=== PATIENT | female | born 1960 | race Caucasian/White ===

== ENCOUNTER → 2016-11-30 | Outpatient (CLI) | payer OTHER ==
[~2016-11-30] MED LIST: APIX1TAB3 PO; FLEC50TA20 PO; LISI-461 PO; METO25TA56 PO; OXYC-57 PO; TAMO20TA47 PO
== END | disposition home or self-care (01) ==
LOC: C.PATHSPEC 17:28
PROVIDERS: ATTEND Obstetrics & Gynecology
DX: N85.8 Other specified noninflammatory disorders of uterus (principal)

== ENCOUNTER 2017-01-25 07:32 | Observation (INO) | payer OTHER ==
[2017-01-06 09:55] VITALS: BMI 35.0
--- NOTE | 2017-01-06 10:36 | PAT Medication Instructions ---
Service Date Jan 06, 2017. Current Home Medication List Apixaban (Eliquis), 5 MG PO BID Flecainide (Tambocor), 50 MG PO BID Lisinopril (Zestril), 10 MG PO HS Metoprolol Tartrate (Lopressor) (Lopressor), 25 MG PO BID Tamoxifen (Nolvadex), 20 MG PO QAM Medication Instructions For Your Scheduled Surgery Apixaban (Eliquis), 5 MG PO BID (hold 10 days prior to surgery per surgeon instructions; cardio aware and was leaving instructions up to surgeon) Tamoxifen (Nolvadex), 20 MG PO QAM (hold 10 days prior to surgery per Dr. Lema) - Hold the following medications evening prior to surgery: Lisinopril (Zestril), 10 MG PO HS - Take the following medications the morning of surgery with a sip of water: Metoprolol Tartrate (Lopressor) (Lopressor), 25 MG PO BID Flecainide (Tambocor), 50 MG PO BID - Take the following medications as scheduled the night before surgery: Metoprolol Tartrate (Lopressor) (Lopressor), 25 MG PO BID Flecainide (Tambocor), 50 MG PO BID If you have any questions please call us at [phone] or [phone] ( [place]) or [phone]
[2017-01-06 11:23] LABS: BASO % 0.7 %; BASO ABS # 0.04 K/uL (0-0.2); COMPLETE YES; EOS % 5.6 %; HEMATOCRIT 32.4 % (37-47); IG% 0.2 %; LYMPH % 34.5 %; LYMPH ABS # 1.98 K/uL (1.2-3.4); MEAN CELL VOLUME 83.7 fL (80-100); MEAN CORPUSCULAR HEMOGLOBIN 26.1 pg (25-34); MEAN CORPUSCULAR HGB CONC 31.2 g/dl (32-36); MEAN PLATELET VOLUME 10.2 fL (7.4-10.4); MONO % 9.2 %; NEUT % 49.8 %; PLATELET COUNT 282 K/uL (130-400); RED BLOOD COUNT 3.87 M/uL (4.2-5.4); WHITE BLOOD COUNT 5.74 K/uL (4.8-10.8)
[2017-01-06 12:08] LABS: BUN/CREATININE RATIO 17.6 (10-20); CALCIUM 8.7 mg/dl (8.5-10.1); CREATININE 0.77 mg/dl (0.60-1.20); POTASSIUM 4.2 mmol/L (3.5-5.1)
[2017-01-25] VITALS (9 sets, daily range): BP systolic 117–169; BP diastolic 70–83; PULSE 52–68; TEMP 36.5–37.4; O2SAT 93–100; Ht 157.5 cm; Wt 87.0 kg
[~2017-01-25] VITALS: Ht 157.5 cm; Wt 87.0 kg
[~2017-01-25 07:32] MED LIST changes: +CIPROFLOXACIN / D5W 400 MG IV SCH; +LACTATED RINGER'S 1000ML 1,000 ML IV SCH; +LACTATED RINGER'S 1000ML IV SCH; -OXYC-57 PO; +SCOPOLAMINE 1.5 MG TDSY TD SCH
[2017-01-25] MEDS ORDERED: METRONIDAZOLE 500MG / NSS IV SCH (08:00)
[2017-01-25] MEDS ORDERED: MIDAZOLAM HCL 1 MG/ML 2ML VIAL ONE ×2 (08:15→11:00)
[2017-01-25] MEDS ORDERED: FENTANYL CITRATE INJ 50 MCG/1 ML 2 ML VIAL ONE (08:15)
[2017-01-25 08:35] LABS: HEMATOCRIT 34.9 % (37-47); MEAN CELL VOLUME 84.7 fL (80-100); MEAN CORPUSCULAR HEMOGLOBIN 26.5 pg (25-34); MEAN CORPUSCULAR HGB CONC 31.2 g/dl (32-36); MEAN PLATELET VOLUME 10.6 fL (7.4-10.4); PLATELET COUNT 262 K/uL (130-400); RED BLOOD COUNT 4.12 M/uL (4.2-5.4)
[2017-01-25] MEDS ORDERED: FENTANYL CITRATE INJ 50 MCG/1 ML 2 ML VIAL IV PRN (08:45)
[2017-01-25] MEDS ORDERED: ATROPINE SULFATE 0.1 MG/ML 5ML SYR IV PRN (08:45)
[2017-01-25] MEDS ORDERED: HYDROmorphone INJ 1 MG/ML SYR IV PRN (08:45)
[2017-01-25] MEDS ORDERED: EpHEDrine SULFATE INJ 50 MG/ML AMP IV PRN (08:45)
[2017-01-25] MEDS ORDERED: MEPERIDINE HCL 25 MG/ML CARP IV PRN (08:45)
[2017-01-25] MEDS ORDERED: ONDANSETRON INJ 2 MG/ML 2 ML VIAL IV PRN ×2 (08:45→13:30)
[2017-01-25] MEDS ORDERED: LABETALOL HCL IV 5 MG/ML 20ML IV PRN (08:45)
--- NOTE | 2017-01-25 08:58 | History & Physical Bridge Note ---
H&P Re-Evaluation Bridge Note: I have examined the patient, reviewed the History & Physical and in the interval since the performance of the History & Physical I have noted the following changes of clinical significance: No changes noted
[2017-01-25] MEDS ORDERED: METHYLENE BLUE 0.5% 10 ML VIAL ONE (10:36)
[2017-01-25] MEDS ORDERED: BUPIVACAINE 0.5 % 5 MG/1 ML MPF 30ML VIAL ONE (10:36)
[2017-01-25] MEDS ORDERED: EpHEDrine SULFATE 50MG/5ML SYR ONE (12:20)
[2017-01-25] MEDS ORDERED: ONDANSETRON INJ 2 MG/ML 2 ML VIAL ONE ×2 (12:32)
[2017-01-25] MEDS ORDERED: ROCURONIUM BROMIDE 10 MG/ML 5 ML VIAL ONE ×2 (12:32)
[2017-01-25] MEDS ORDERED: NEOSTIGMINE METHYLSULFATE 5 MG/5 ML SYR ONE (12:32)
[2017-01-25] MEDS ORDERED: PROPOFOL IV EMULSION 10 MG/ML 20 ML VIAL IV ONE (12:32)
[2017-01-25] MEDS ORDERED: DEXAMETHASONE SOD INJ 4 MG/ML VIAL ONE (12:32)
[2017-01-25] MEDS ORDERED: GLYCOPYRROLATE INJ 0.2 MG/ML VIAL ONE ×2 (12:32)
[2017-01-25] MEDS ORDERED: LIDOCAINE HCL 2% 2 ML VIAL (20MG/ML) ONE (12:32)
[2017-01-25] MEDS ORDERED: TISSEEL FIBRIN SEALANT 4ML TOP ONE (13:11)
[2017-01-25] MEDS ORDERED: LACTATED RINGER'S 1000ML 1,000 ML IV SCH (13:27)
--- NOTE | 2017-01-25 13:29 | [facility] Post Operative Brief Note ---
Immediate Operative Summary Operative Date Jan 25, 2017. Pre-Operative Diagnosis Menorrhagia, Uterine Leiomyoma, Breast Cancer uterus >250g Post-Operative Diagnosis Same as Preop Procedure(s) Performed Total Laparoscopic Hysterectomy, bilateral Salpingo-Oophorectomy Robot Asisst, Cystoscopy;Uterus Over [address] Oro Funeral Pre Need Consultant Surgeon(s) none Estimated Blood Loss 30 ML Findings enlarged uterus Specimens A. Cervix, Uterus, Bilateral Fallopian Tubes and Ovaries Drains Reyes Anesthesia General Complication(s) None Disposition Recovery Room / PACU
[2017-01-25] MEDS ORDERED: SIMETHICONE 80 MG CHEW PO PRN (13:30)
[2017-01-25] MEDS ORDERED: PROMETHAZINE HCL INJ 12.5 MG in SODIUM CHLORIDE 0.9% 50ML 50 ML IV PRN (13:30)
[2017-01-25] MEDS ORDERED: ZOLPIDEM TARTRATE 5 MG TAB PO PRN (13:30)
[2017-01-25] MEDS ORDERED: PROMETHAZINE HCL INJ 25 MG in SODIUM CHLORIDE 0.9% 50ML 50 ML IV PRN (13:30)
[2017-01-25] MEDS ORDERED: MEPERIDINE HCL 50 MG/ML CARP IV PRN (13:30)
[2017-01-25] MEDS ORDERED: ACETAMINOPHEN 325 MG TAB PO PRN (13:30)
[2017-01-25] MEDS ORDERED: IBUPROFEN 600 MG TAB PO PRN (13:30)
[2017-01-25] MEDS ORDERED: MEPERIDINE HCL 75 MG/ML CARP IV PRN (13:30)
[2017-01-25] MEDS ORDERED: BISACODYL 10 MG SUPP PR PRN (13:30)
[2017-01-25] MEDS ORDERED: OXYCODONE/ACETAMINOPHEN 5-325 TAB PO PRN ×2 (13:30)
[2017-01-25] MEDS ORDERED: MAGNESIUM HYDROXIDE SUSP 30 ML UDC PO PRN (13:30)
[2017-01-25] MEDS ORDERED: OXYC-57 PO (13:31)
--- NOTE | 2017-01-25 13:31 | Discharge Instructions ---
Discharge Instructions Date of Service Jan 25, 2017. Admission Reason for Admission: Menorrhagia, Uterus Fibroma, Breast Cancer Discharge Discharge Diagnosis / Problem: menorrhagia Discharge Goals Goal(s): Routine recovery after surgery Activity Recommendations Activity Limitations: per Instructions/Follow-up section . Instructions / Follow-Up Instructions / Follow-Up POST OPERATIVE: BOWEL FUNCTION/MEDICATIONS: 1. Constipation pain and discomfort are the most common complaints 5-7 days after surgery. Points 2-6 address the things that can help. 2. Chewing gum can help stimulate the gut and help improve digestion and motility. 3. Milk of Magnesia 1-2 times per day until return of bowel function. 4. Colace is a stool softener that helps. Taking this 2-3 times per day until bowel function returns to normal is highly recommended. 5. Dulcolax is a laxative that may be used if several days have passed without a bowel movement. Alternatively Miralax may be used daily instead. 6. Drink plenty of fluids as this will also reduce constipation. 7. Narcotic pain medications will be prescribed by your physician. They are safe to use and we encourage you to use them. If you are not allergic, ibuprofen will also be prescribed. Many patients will be able to transition off of the narcotic medications to ibuprofen by postoperative day 3. ACTIVITY RECOMMENDATIONS: 1. Get plenty of rest and listen to your body. If you are tired, take a nap. 2. You may shower, but do not take a tub bath until you see your doctor at the 2 week post operative visit. 3. Absolutely NO intercourse and nothing in the vagina until you are examined by your doctor at the 6 week visit. At that visit it will be determined when such activities can be resumed. This can range from 6-12 weeks after your surgery depending on healing time. 4. The main physical activity in the first week should be walking. By the second week you can slowly increase activity. There are no limits on walking up and down stairs. 5. Do not lift more than 5-10 lbs for 4 weeks. Remember the "one-handed rule", i.e. if you can lift something with only one hand it's likely okay. 6. Minimize nursery teacher like vacuuming and exercising for 4 weeks. "Overdoing it" can lead to incisions not healing, pain and vaginal bleeding , so again, listen to your body. 7. Driving can be resumed when you feel able. Do not drive within 24 hours of taking a narcotic medication. EXPECTATIONS: 1. Vaginal spotting, bleeding and discharge are common after surgery. There may even be an odor to the discharge which is often related to sutures used in the vagina. If you experience heavy vaginal bleeding, call the office number day or night [phone]. 2. Bladder discomfort is common after surgery from the catheter. This usually resolves in 1-2 weeks. 3. By the end of the 3rd or 4th week you should be feeling much better. It may take up to 6 weeks for your energy levels to return to normal. 4. Narcotic medications have side effects such as: dizziness, headache, nausea and/or vomiting. If you suspect your pain medication is causing problems, call our office and we may be able to prescribe an alternate medication. 5. The skin incisions are often covered with a liquid bandage. This will gradually peel off over time. CALL THE OFFICE IF YOU HAVE ANY OF THE FOLLOWIN. Temperature of 101 degrees or higher. 2. Severe abdominal or pelvic pain not relieved by pain medication. 3. Persistent nausea or vomiting. 4. Increased pain with urination or difficulty urinating. 5. Bright red bleeding that soaks more than 1 pad per hour. CONTACT PHONE NUMBERS: Main Office: [phone] Surgical Nurse: [phone] extension [phone] Avoid all tobacco products. If you need help to stop smoking, call [place]'s FREE QUITLINE at . This is a free call. Current Hospital Diet Patient's current hospital diet: Discharge Diet Recommended Diet: Regular Diet Procedures Procedures Performed: Total Laparoscopic Hysterectomy, bilateral Salpingo-Oophorectomy Robot Asisst, Cystoscopy;Uterus Over 250 Grams Pending Studies Studies pending at discharge: no Medical Emergencies . Who to Call and When: Medical Emergencies: If at any time you feel your situation is an emergency, please call 911 immediately. . Non-Emergent Contact Non-Emergency issues call your: Primary Care Provider . . "Provider Documentation" section prepared by William Oro. VTE Core Measure Inpt VTE Proph given/why not?: Han Vail, SCD's
[2017-01-25] MEDS ORDERED: IV FLUIDS COMPLETED PRN (14:00)
--- NOTE | 2017-01-25 14:25 | OPERATIVE REPORT ---
DATE OF OPERATION: 01/25/2017 PREOPERATIVE DIAGNOSES: Menorrhagia, uterine leiomyoma cancer, uterus greater than 12 weeks size and mobile. POSTOPERATIVE DIAGNOSES: Same. PROCEDURE: Laparoscopy hysteroscopy, bilateral salpingo-oophorectomy, cystoscopy robotically assisted. SURGEON: Dr. Oro. EXTRACTION MACHINE OPERATOR: None. ESTIMATED BLOOD LOSS: None. SPECIMENS: 1. Uterus. 2. Bilateral fallopian tubes and ovaries. DRAINS: Reyes. COMPLICATIONS: None. DISPOSITION: To recovery room. DESCRIPTION OF PROCEDURE: Velma was given a general anesthetic, prepped and draped in dorsal lithotomy position in [facility]. Bladder was drained to Reyes catheter. VCare attached to the cervix and sewn in place in the usual fashion. Uterus was enlarged and possibly 12 weeks size and mobile. Gloves changed and a supraumbilical incision made with scalpel using open Alycia technique, we cut down through subcutaneous fat to the fascia in the midline, splitting the rectus muscles and entering the peritoneal cavity without difficulty. Blunt-tipped Alycia trocar then placed. Balloon inflated and then the trocar. CO2 gas then used to insufflate the abdomen. FINDINGS: Upper abdomen normal, no sign of visceral organ injury. Deep Trendelenburg position obtained. FINDINGS: Enlarged uterus consistent with ultrasound assessment. Adnexa appeared within normal limits. There were some adhesions in the cul-de-sac. These were flimsy and minimal. No other abnormal findings. Robot was docked after inserting ports, 2 on the right, 1 on the left and the left upper quadrant accessory port 11 mm bladeless. Once the robot was docked, arm #1 was monopolar alisson. arm #2 was bipolar [place], arm #3 ProGrasp. Using the uterine VCare manipulator and the robotic instruments, I was able to identify the ureters both on left and right side, left was somewhat more difficult to visualize, but I did visualize this making a window above the ureter on the left side avoiding it and making a window to incorporate a bite of the uterine artery and vein with the bipolar fenestrated [place]. This was coagulated several times and then cut. Same process with the round ligament. Uterine vessels then skeletonized. Bladder flap sharply dissected away. Uterine vessels identified and coagulated and cut. These were well away from the ureter on the left side. The exact same process was continued on the right. I freed up the posterior adhesions as well at this stage with the monopolar alisson. Monopolar alisson were then used to perform the colpotomy, which was begun anteriorly and then continued around to remove the cervix from the vagina staying medial to our uterine artery and vein ligations. The uterus was able to remove vaginally. This required me to scrub back in and using a tenaculum, I was able to remove the uterus out and without much difficulty. Sponge was then placed into the vagina for pneumoperitoneum. After generous irrigation and suction, the cuff appeared normal. It was somewhat more splayed posteriorly and thickened but certainly nowhere near the rectum. Instrument exchange was then performed. Arm #1 became the hans needle mixer driver and arm #2 became the cobra. Using a suture 12-inch 2-0 with 90-day SwiveLock suture passed, we closed the cuff from left to right back right to left. Suture was then cut. I then put an extra bucmaj-km-nirhs 0 Vicryl. This was a 2-0 Vicryl passed through the accessory port and cut to 6 inches. This was a ttfued-cz-humcf for further support on the vaginal cuff. At this stage, both needles have been removed through the accessory port. After generous irrigation and suction, we then applied 4 mL of Tisseel noted closure of the cuff. Also, we had given methylene blue and there was no leakage noted. Additionally, I also had given antibiotics preoperative, clindamycin and gentamicin. At this stage, we then performed cystoscopy. Using the cystoscope, I was able to visualize the bladder. Reyes catheter had been removed prior to removal of the uterine specimen. No sutures seen in the bladder, no abnormalities and both ureters on left and right side had strong jets of blue dye from each ureter openings. Scope removed and a new Reyes catheter placed. There was minimal vaginal bleeding at this stage. I reinspected laparoscopically. There was dehiscence of the cuff. No bleeding. I did do a rectal exam after the cystoscopy as well and felt no sutures in the rectum and no abnormalities. Robotic instruments removed under direct visualization, robot undocked, ports removed, gas allowed to escape. All incisions have been injected with 0.5% Marcaine prior to the case and then fascia closed with several qkvpea-rq-kjjlw 0 Vicryl sutures into the fascia and deep subcutaneous fat closures as well, closure as well of the left upper quadrant accessory port as well, 4-0 subcuticular Monocryl closures and Dermabond. Sponge and instrument counts correct. The patient went to recovery in stable condition. I attest to the content of the Intraoperative Record and any orders documented therein. Any exceptions are noted below. MTDD
--- NOTE | 2017-01-25 14:48 | Anesthesiology Progress Note ---
Anesthesia Post Op Note Date & Time Jan 25, 2017 at 14:48 Vital Signs Pain Intensity: 1 Vital Signs Past 12 Hours Date Time Temp Pulse Resp B/P Pulse Ox O2 Delivery O2 Flow Rate FiO2 01/25/17 14:21 36.5 118/62 01/25/17 14:20 56 17 98 01/25/17 14:20 56 17 01/25/17 14:16 122/69 01/25/17 14:15 56 18 98 01/25/17 14:15 56 18 01/25/17 14:11 110/64 01/25/17 14:10 58 21 01/25/17 14:10 57 21 99 01/25/17 14:06 117/64 01/25/17 14:05 59 20 98 01/25/17 14:05 59 20 01/25/17 14:01 123/66 01/25/17 14:00 58 20 01/25/17 14:00 58 20 97 01/25/17 13:56 108/72 01/25/17 13:55 59 21 97 01/25/17 13:55 59 21 01/25/17 13:51 120/64 01/25/17 13:50 59 26 01/25/17 13:50 59 26 99 01/25/17 13:46 136/64 01/25/17 13:45 59 23 98 01/25/17 13:45 59 23 01/25/17 13:43 117/66 01/25/17 13:35 36.2 67 16 133/66 99 Mask 10 01/25/17 08:06 36.5 52 18 169/83 100 Room Air Notes Mental Status: alert / awake / arousable, participated in evaluation Pt Amnestic to Procedure: Yes Nausea / Vomiting: adequately controlled Pain: adequately controlled Airway Patency, RR, SpO2: stable & adequate BP & HR: stable & adequate Hydration State: stable & adequate Anesthetic Complications: no major complications apparent
[2017-01-25] MEDS ORDERED: CHECK SCOPOLAMINE PATCH PLACEMENT SCH (16:00)
[2017-01-25 20:24] LABS: HEMATOCRIT 32.9 % (37-47)
[2017-01-25] MEDS ORDERED: DOCUSATE SODIUM 100 MG CAP PO SCH (21:00)
--- NOTE | 2017-02-02 10:29 | DISCHARGE SUMMARY ---
Velma had a total laparoscopic hysterectomy on 01/25/2017. Operative note has been dictated. Her course in hospital was unremarkable and by the evening of the same date of her surgery she was discharged home. SUBJECTIVE: At that time she was passing gas and tolerating oral diet, oral pain medication, had minimal bleeding or pain and no extremity pain. PHYSICAL EXAMINATION: Vital signs were stable. She was afebrile. IMPRESSION AND PLAN: Several hours post TLH the patient was discharged with appropriate discharge instructions, pain medications and told to follow up in the office.
== END 2017-01-25 22:10 | disposition home or self-care (01) ==
LOC: ENRESERVTM → ENRESERVDT → C.ACU 07:32 → C.MS4N 07:45
PROVIDERS: ADMIT Obstetrics & Gynecology; ATTEND Obstetrics & Gynecology
DX: D25.9 Leiomyoma of uterus, unspecified (principal); N84.0 Polyp of corpus uteri; N80.9 Endometriosis, unspecified; N92.0 Excessive and frequent menstruation with regular cycle; C50.919 Malignant neoplasm of unspecified site of unspecified female breast; Z90.49 Acquired absence of other specified parts of digestive tract; E78.00 Pure hypercholesterolemia, unspecified; E66.9 Obesity, unspecified; Z88.0 Allergy status to penicillin; Z88.2 Allergy status to sulfonamides
CPT/HCPCS: 58573; S2900

== ENCOUNTER → 2017-06-21 | Outpatient (CLI) | payer OTHER ==
[~2017-06-21] MED LIST changes: -CIPROFLOXACIN / D5W 400 MG IV SCH; -LACTATED RINGER'S 1000ML 1,000 ML IV SCH; -LACTATED RINGER'S 1000ML IV SCH; +OXYC-57 PO; -SCOPOLAMINE 1.5 MG TDSY TD SCH
--- NOTE | 2017-06-22 13:56 | MAMMOGRAPHY REPORT ---
BILATERAL DIGITAL SCREENING MAMMOGRAM TOMOSYNTHESIS WITH CAD: 06/21/2017 CLINICAL HISTORY: Asymptomatic. Personal history of breast cancer. TECHNIQUE: Breast tomosynthesis in addition to standard 2D mammography was performed. Current study was also evaluated with a Computer Aided Detection (CAD) system. COMPARISON: Comparison is made to exams dated: 04/01/2016 mammogram, 03/27/2015 mammogram, 03/14/2014 m ammogram, 04/28/2013 mammogram, 10/03/2012 ultrasound biopsy, and 09/30/2012 mammogram - [facility]. BREAST COMPOSITION: There are scattered areas of fibroglandular density in both breasts. FINDINGS: There is skin irregularity and a stable mass at the surgical site in the 12:00 anterior sub areolar right breast. A few stable benign-appearing left breast calcifications. No new suspicious m ass, architectural distortion or cluster of microcalcifications is seen. IMPRESSION: ACR BI-RADS CATEGORY 1: NEGATIVE There is no mammographic evidence of malignancy. A 1 year screening mammogram is recommended. The pa tient will receive written notification of the results. Approximately 10% of breast cancers are not detected with mammography. A negative mammographic report should not delay biopsy if a clinically suggestive mass is present. Aleksandra Rosas M.D. ay/:06/21/2017 16:28:50 Laminating Press Operator: Anabell Armendariz, [facility] letter sent: Normal 1/2 BI-RADS Code: ACR BI-RADS Category 1: Negative
== END | disposition home or self-care (01) ==
LOC: C.MAMM 13:10
PROVIDERS: ATTEND Surgery
DX: Z12.31 Encounter for screening mammogram for malignant neoplasm of breast (principal); Z85.3 Personal history of malignant neoplasm of breast

== ENCOUNTER → 2018-06-23 | Outpatient (CLI) | payer BC ==
[~2018-06-23] MED LIST changes: -TAMO20TA47 PO; +TAMO20TA9 PO
--- NOTE | 2018-06-24 15:28 | MAMMOGRAPHY REPORT ---
BILATERAL DIGITAL SCREENING MAMMOGRAM TOMOSYNTHESIS WITH CAD: 06/23/2018 CLINICAL HISTORY: Routine screening. Patient has no complaints. TECHNIQUE: The study was acquired using full field digital technology and interpreted from soft copy. Breast tomosynthesis in addition to standard 2D mammography was performed. Current study was also ev aluated with a Computer Aided Detection (CAD) system. COMPARISON: Comparison is made to exams dated: 06/21/2017 mammogram, 04/01/2016 mammogram, 03/27/2015 ma mmogram, 04/28/2013 mammogram, 03/14/2014 mammogram, and 09/30/2012 mammogram - [facility]. BREAST COMPOSITION: The tissue of both breasts is almost entirely fatty. FINDINGS: Again noted is density and architectural distortion in the right central breast anteriorly from prior lumpectomy. There is a new oval 9 mm mass at the lumpectomy bed, for which spot compression tomosyn thesis views and possible breast ultrasound are recommended for further evaluation. The remainder of both breasts are stable compared to prior exams, without suspicious masses, calcific ations, or areas of architectural distortion noted. A linear scar marker overlies the right anterior breast. Scattered bilateral benign appearing calcifications are stable. IMPRESSION: ACR BI-RADS CATEGORY 0: INCOMPLETE EVALUATION: NEED ADDITIONAL IMAGING EVALUATION Right breast mass, for which additional imaging evaluation is recommended. The patient will be king d to schedule an appointment. Some breast cancers are not detected with mammography. A negative mammographic report should not tyra y biopsy if a clinically suggestive mass is present. Lelia Davison M.D. ah/:06/23/2018 16:47:00 Cashier Wrapper: RT Spring(R)(M), [facility] letter sent: Addl Imaging 0 BI-RADS Code: ACR BI-RADS Category 0: Incomplete Evaluation: Need Additional Imaging Evaluation
== END | disposition home or self-care (01) ==
LOC: C.MAMM 16:17
PROVIDERS: ATTEND Internal Medicine Hematology & Oncology
DX: Z12.31 Encounter for screening mammogram for malignant neoplasm of breast (principal); N63.10 Unspecified lump in the right breast, unspecified quadrant

== ENCOUNTER → 2018-07-01 | Outpatient (CLI) | payer BC ==
--- NOTE | 2018-07-01 15:42 | MAMMOGRAPHY REPORT ---
UNILATERAL RIGHT DIGITAL DIAGNOSTIC MAMMOGRAM TOMOSYNTHESIS AND RIGHT ULTRASOUND: 07/01/2018 CLINICAL HISTORY: Callback from screening mammogram for right breast mass. TECHNIQUE: The study was acquired using full field digital technology and interpreted from soft copy. Breast tomosynthesis in addition to standard 2D mammography was performed. Spot compression right C C and MLO 2D and tomosynthesis images were obtained. COMPARISON: Comparison is made to exams dated: 06/23/2018 mammogram, 06/21/2017 mammogram, 04/01/2016 ambar mogram, 03/27/2015 mammogram, 03/14/2014 mammogram, and 09/30/2012 mammogram - [facility]. BREAST COMPOSITION: The tissue of right breast is almost entirely fatty. FINDINGS: Spot compression views demonstrate a persistent oval partially circumscribed and partially obscured 9 mm mass at the lumpectomy bed within the right breast at approximately 12:00, best seen on the tomos ynthesis images. Targeted ultrasound was performed of the lumpectomy bed in the right breast. In the right 1230 subar eolar breast, there is ill-defined hypoechoic shadowing tissue consistent with postsurgical changes. At the inferior aspect of the surgical bed, there is a more focal round hypoechoic mass with partial ly circumscribed and partially obscured margins which measures 8 x 7 x 8 mm. This is felt to corresp ond with the new mammographic mass. While findings may represent fat necrosis, the finding is indete rminate and ultrasound-guided core needle biopsy is recommended for further evaluation. IMPRESSION: ACR BI-RADS CATEGORY 4: SUSPICIOUS, ULTRASOUND ACR BI-RADS CATEGORY 4: SUSPICIOUS Hypoechoic 8 mm mass at the lumpectomy bed in the right 1230 subareolar breast on ultrasound, which c orresponds with the new partially circumscribed mammographic mass. While the finding may represent f at necrosis, it is indeterminate and ultrasound-guided core needle biopsy is recommended for further evaluation. A phone call was made to the physician's office to confirm faxed results were received. The patient has been verbally notified of the results. She tentatively scheduled the biopsy before l eaving the department. The patient was advised that she can continue taking her Eliquis due to the h istory of atrial fibrillation. Some breast cancers are not detected with mammography. A negative mammographic report should not tyra y biopsy if a clinically suggestive mass is present. Lelia Davison M.D. ah/:07/01/2018 14:29:58 Mixed Livestock Farmer: RT Juan(Darrius)(M), [facility] letter sent: Abnormal 02/17 OVERALL STUDY BIRADS: 4 Suspicious abnormality
== END | disposition home or self-care (01) ==
LOC: C.MAMM 13:45
PROVIDERS: ATTEND Internal Medicine Hematology & Oncology
DX: N63.12 Unspecified lump in the right breast, upper inner quadrant (principal)

== ENCOUNTER → 2018-07-06 | Outpatient (CLI) | payer BC ==
--- NOTE | 2018-07-06 09:44 | Discharge Instructions ---
Discharge Instructions Procedure Procedure Date: Jul 06, 2018. Reason for visit: Right Mass. Discharge Discharge Date: Jul 06, 2018. Discharge Diagnosis: post right breast ultrasound guided core biopsy Medications Restart Stopped Medication(s): Follow anticoagulation per doctor's orders Instructions Activity Recommendations: Additional Limitations (see below) Return to School/Work: no limitations Recommended Home Diet: No Limitations Provider Instructions: ACTIVITY RECOMMENDATIONS: * No lifting, pushing, pulling or exercising the affected side for three days. RETURN TO SCHOOL/WORK: * You may return to work/school after the procedure, but do not perform any strenuous activities for 24 to 48 hours. MEDICATIONS: * Tylenol (two 325 mg) every four to six hours if needed for mild pain (if not allergic to Tylenol). DIET: * Resume previous diet. SPECIAL CARE INSTRUCTIONS: * Keep biopsy site dry for 24 hours. May shower after 24 hours, but do not soak (bathe) incision. May remove Tegaderm (plastic patch) 24 hours after procedure * Leave the steri-strips on for one week. Allow the steri-strips to fall off by themselves. If not off after one week, you may remove them. You may place a Bandaid crosswise over the strips, if desired. * Apply ice 10 minutes on and 10 minutes off as needed. * Wear a bra at bedtime to sleep more comfortably for 2-3 days. * Your referring physician should have the results after approximately 5 to 7 business days. * Call for unusual bleeding, fever, drainage, etc or if you have any questions call [phone] during normal business hours or after hours call Dr Rosas, . FOLLOW UP VISIT: Follow-up with Referring Physician as scheduled. Allergies Coded Allergies: Penicillins (Verified Allergy, Severe, HIVES, 01/25/17) Sulfa Antibiotics (Verified Allergy, Severe, HIVES, FLU LIKE SYMPTOMS, ) Tramadol (Verified Adverse Reaction, Unknown, NAUSEA, 01/25/17) Rena Moss Recommendations: Call your doctor if: * Temperature above 101 degrees * Pain not relieved by pain medicine ordered * There is increased drainage or redness from any incision * You have any unanswered questions or concerns. Your Doctors Instructions noted above were prepared by provider Aleksandra Rosas. Patient Signature Section: Patient Instructions Signature Page Velma Lyle Patient (or Guardian) Signature/Date: I have read and understand the instructions given to me by my caregivers. Caregiver/RN/Doctor Signature/Date: The above-named patient and/or guardian has received patient instructions on this date. + Original Patient Signature Page (only) stays with chart. Please make copy for patient.
--- NOTE | 2018-07-06 13:39 | MAMMOGRAPHY REPORT ---
ULTRASOUND GUIDED BIOPSY RIGHT BREAST: 07/06/2018 CLINICAL HISTORY: 58-year-old woman presents for biopsy of an 8 mm round mass near the lumpectomy bed in the 1230 subareolar right breast. Patient has a personal history of right breast cancer status po st breast conservation treatment. COMPARISON: Comparison is made to exams dated: 06/23/2018 mammogram, 04/01/2016 mammogram, 03/27/2015 ma mmogram, 04/28/2013 mammogram, and 09/30/2012 ultrasound - [facility]. PATIENT CONSENT: The procedure, risks and benefits were discussed with the patient and informed conse nt was obtained both verbally and in writing. Specific risks to this procedure include: bleeding, in fection, puncture of adjacent structure, nontarget biopsy, sampling error, pain, metal allergy and me dication reaction. PROCEDURE DESCRIPTION: A time out was performed and the right breast was agreed as the site of biopsy . The skin was prepped and draped in the usual sterile fashion. The round 8 mm hypoechoic mass in the 12:30 subareolar right breast was chosen as the target for biopsy. Subcutaneous and intraparenchymal 1% buffered lidocaine, with and without epinephrine, was administered as local anesthesia. A skin in cision was made. Through the incision, 4 samples were taken with a 14 gauge Achieve biopsy device. A ribbon shaped metallic marker was placed at the biopsy site. Hemostasis was achieved after manual co mpression. The patient tolerated the procedure well and there was no immediate complication. The [facility] ples were sent to the pathology department in an appropriately labeled container. Postprocedure right CC and ML tomosynthesis images were obtained. A new ribbon-shaped biopsy marker clip is seen within the 8 mm mass in question adjacent to the lumpectomy bed in the subareolar right breast. No significant postbiopsy hematoma identified. IMPRESSION: ULTRASOUND GUIDED BIOPSY Status post right breast ultrasound-guided core biopsy of an 8 mm hypoechoic mass adjacent to the lum pectomy bed in the right 12:30 subareolar breast, with biopsy marker clip placed at the site. The patient will receive notification of the biopsy results from her referring physician. Aleksandra Rosas M.D. ay/:07/06/2018 12:32:07 Sane Nurse: Anabell Armendariz, [facility]
== END | disposition home or self-care (01) ==
LOC: C.MAMM 08:43
PROVIDERS: ATTEND Internal Medicine Hematology & Oncology
DX: N63.10 Unspecified lump in the right breast, unspecified quadrant (principal); N60.81 Other benign mammary dysplasias of right breast